=== PATIENT | male | born 1975 | race African-American/Black ===

== ENCOUNTER 2021-04-20 14:28 | Emergency (ER) | payer MEDICARE, OTHER ==
[~2021-04-20] VITALS: Ht 185.4 cm; Wt 65.0 kg
[2021-04-20 15:30] VITALS: BP 128/65
== END 2021-04-20 16:06 | disposition home or self-care (01) ==
LOC: ER 14:28
DX: R20.0 Anesthesia of skin (principal); G35 Multiple sclerosis
CPT/HCPCS: 99283